=== PATIENT | male | born 1995 | race Caucasian/White ===

== ENCOUNTER 2018-12-24 17:39 | Emergency (ER) | payer OTHER ==
[2018-12-24 17:53] VITALS: BP 156/74
--- NOTE | 2018-12-24 18:24 | XRAY Report ---
Reason: L wrist pain x 1.5 weeks Procedure Date: 12/24/2018 Accession Number: [id number] / [id number] Procedure: XR - Wrist 4 View LT CPT Code: FULL RESULT: EXAM: LEFT WRIST RADIOGRAPHY EXAM DATE: 12/24/2018 06:12 PM. CLINICAL HISTORY: L wrist pain x 1. 5 weeks. COMPARISON: None. TECHNIQUE: 3 views. FINDINGS: Bones: Normal. No fractures or bone lesions. Joints: Normal. No subluxations. Soft Tissues: Normal. No soft tissue swelling. IMPRESSION: Normal wrist radiography. [facility]
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
== END 2018-12-24 18:37 | disposition home or self-care (01) ==
LOC: ED 17:39
DX: S63.502A Unspecified sprain of left wrist, initial encounter (principal); V86.52XA Driver of snowmobile injured in nontraffic accident, initial encounter
CPT/HCPCS: 99283